=== PATIENT | male | born 2000 | race Asian ===

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

== ENCOUNTER 2019-03-17 15:39 | Emergency (ER) | payer BC ==
--- NOTE | 2019-03-17 16:16 | ED ---
Upper Extremity Pain - HPI Summary HPI Summary: Patient is a 18-year-old male who presents emergency department for injury to right hand that occurred today. Patient states his right hand was struck with a bamboo stick during gym class today. Symptoms mild in severity. No other injuries sustained. Touching area makes symptoms worse. Rest makes symptoms better. - History of Current Complaint Chief Complaint: EDExtremityUpper Stated Complaint: RIGHT HAND INJURY PER PT Time Seen by Provider: 03/17/19 16:11 Hx Obtained From: Patient - Allergies/Home Medications Allergies/Adverse Reactions: Allergies Allergy/AdvReac Type Severity Reaction Status Date / Time amoxicillin Allergy Rash Verified 11/08/17 01:59 cefdinir [From Omnicef] Allergy Unknown Verified 11/08/17 01:59 Reaction Details PMH/Surg Hx/FS Hx/Imm Hx Previously Healthy: Yes Respiratory History: Reports: Hx Asthma Sensory History: Denies: Hx Legally Blind, Hx Deafness Opthamlomology History: Denies: Hx Legally Blind Infectious Disease History: No Infectious Disease History: Denies: Traveled Outside the [place] in Last 30 Days - Family History Known Family History: Positive: Non-Contributory Negative: Blood Disorder - Social History Occupation: Student Lives: Dormitory/Roommates Alcohol Use: None Substance Use Type: Reports: None Smoking Status (MU): Never Smoked Tobacco Review of Systems Positive: Other - pain to right distal thumb and hand. Positive: Bruising Neurological: Negative All Other Systems Reviewed And Are Negative: Yes Physical Exam Triage Information Reviewed: Yes Vital Signs On Initial Exam: Initial Vitals Temp Pulse Resp BP Pulse Ox 98.5 F 70 18 114/81 97 03/17/19 15:39 03/17/19 15:39 03/17/19 15:39 03/17/19 15:39 03/17/19 15:39 Vital Signs Reviewed: Yes Appearance: Positive: Well-Appearing - Pt. sitting on chair in NAD. Friend present. Skin: Positive: Warm, Dry Head/Face: Positive: Normal Head/Face Inspection Neck: Positive: Supple Musculoskeletal: Positive: Other - Small distal subungal hematoma noted to the left distal nail of thumb. Full ROM of digit with mild pain. Mild pain over thenar eminence. Neurological: Positive: Normal, CN Intact II-III Psychiatric: Positive: Affect/Mood Appropriate Procedures - Sedation Patient Received Moderate/Deep Sedation with Procedure: No Diagnostics - Vital Signs Vital Signs Temp Pulse Resp BP Pulse Ox 03/17/19 15:39 98.5 F 70 18 114/81 97 - Laboratory Lab Statement: Any lab studies that have been ordered have been reviewed, and results considered in the medical decision making process. Course/Dx - Course Course Of Treatment: X-ray negative for fracture dislocation, reading per radiology. Advised ice and elevation intermittently. Activity as tolerated. Tylenol or Motrin for pain as directed. Follow up with [facility] if pain persists. Patient understands and agrees with plan. - Diagnoses Differential Diagnosis/HQI/PQRI: Positive: Contusion, Fracture (Closed), Strain , Sprain Provider Diagnoses: Hand contusion, Subungual hematoma Discharge ED - Sign-Out/Discharge Documenting (check all that apply): Patient Departure - Discharge Plan Condition: Good Disposition: HOME Patient Education Materials: Hand Sprain (ED) [facility]errals: [facility] [Primary Care Provider] - Additional Instructions: [facility] if pain persist Ice and elevate intermittently Tylenol or Motrin for pain as directed Return to ER if symptoms change or worsen - Billing Disposition and Condition Condition: GOOD Disposition: Home
[2019-03-17 16:53] VITALS: BP 106/71
== END 2019-03-17 16:54 | disposition home or self-care (01) ==
LOC: ED 15:39
DX: S60.10XA Contusion of unspecified finger with damage to nail, initial encounter (principal); S60.221A Contusion of right hand, initial encounter; J45.909 Unspecified asthma, uncomplicated; W22.8XXA Striking against or struck by other objects, initial encounter; Y92.219 Unspecified school as the place of occurrence of the external cause; Z88.1 Allergy status to other antibiotic agents
CPT/HCPCS: 99281